=== PATIENT | female | born 1960 | race Caucasian/White ===

== ENCOUNTER 2020-11-10 16:58 | Emergency (ER) | payer BC, OTHER ==
[2020-11-10 18:05] LABS: HEMOGLOBIN 14.3 gm/dl (12.3-15.3); RED BLOOD COUNT 4.58 M/UL (4.00-5.10); WHITE BLOOD COUNT 12.1 K/UL (4.5-11.0)
[2020-11-10 18:42] LABS: BUN/CREATININE RATIO 21 (0-10)
[2020-11-10] MEDS ORDERED: ASPIRIN CHEWABL81 MG PO (21:26)
[2020-11-10] MEDS ORDERED: NITROSTAT0.4 MG SL (21:26)
[2020-11-11 06:40] LABS: HEMOGLOBIN 15.6 gm/dl (12.3-15.3); RED BLOOD COUNT 4.99 M/UL (4.00-5.10)
[2020-11-11 06:41] LABS: WHITE BLOOD COUNT 8.5 K/UL (4.5-11.0)
[2020-11-11 08:14] LABS: BUN/CREATININE RATIO 21 (0-10)
== END 2020-11-11 15:10 | disposition home or self-care (01) ==
LOC: ER1 16:58 → CDU 21:40 → ER1 21:40 → CDU 21:40
PROVIDERS: Internal Medicine
DX: R07.89 Other chest pain (principal); E87.6 Hypokalemia; I10 Essential (primary) hypertension; Z20.822 Contact with and (suspected) exposure to COVID-19; F17.210 Nicotine dependence, cigarettes, uncomplicated; J45.909 Unspecified asthma, uncomplicated; Z82.49 Family history of ischemic heart disease and other diseases of the circulatory system
CPT/HCPCS: 71045; 80053; 80061; 82550; 82553; 83036; 83735; 83874; 84443; 84484; 85025; 85379; 93005; 99285; G0378; U0002

== ENCOUNTER → 2020-12-24 | Outpatient (CLI) | payer BC, OTHER ==
[~2020-12-24] MED LIST: ASPIRIN CHEWABL81 MG PO; NITROSTAT0.4 MG SL
== END ==
LOC: US 09:11
DX: R10.13 Epigastric pain (principal)
CPT/HCPCS: 76700

== ENCOUNTER → 2020-12-27 | Outpatient (CLI) | payer BC, OTHER ==
[~2020-12-27] MED LIST changes: +IBUPROFEN600 MG PO
== END ==
LOC: HEART 5 08:49
DX: R07.9 Chest pain, unspecified (principal); I08.1 Rheumatic disorders of both mitral and tricuspid valves
CPT/HCPCS: 93306

== ENCOUNTER → 2020-12-30 | Outpatient (CLI) | payer BC, OTHER | LOC: HEART 5 08:15 | DX: R07.9 Chest pain, unspecified (principal) | CPT/HCPCS: 78452; A9502; J2785 ==

== ENCOUNTER → 2021-02-01 | Outpatient (CLI) | payer BC, OTHER | LOC: KOH-I 16:30 | DX: F17.210 Nicotine dependence, cigarettes, uncomplicated (principal); R91.8 Other nonspecific abnormal finding of lung field | CPT/HCPCS: 71271 ==

== ENCOUNTER 2021-03-05 16:04 | Emergency (ER) | payer BC, OTHER ==
[~2021-03-05 16:04] MED LIST changes: -IBUPROFEN600 MG PO
[2021-03-05] MEDS ORDERED: IBUPROFEN600 MG PO (18:21)
== END 2021-03-05 18:30 | disposition home or self-care (01) ==
LOC: ER1 16:04
DX: S93.601A Unspecified sprain of right foot, initial encounter (principal); E11.9 Type 2 diabetes mellitus without complications; E78.5 Hyperlipidemia, unspecified; I10 Essential (primary) hypertension; J44.9 Chronic obstructive pulmonary disease, unspecified; F17.210 Nicotine dependence, cigarettes, uncomplicated; X58.XXXA Exposure to other specified factors, initial encounter
CPT/HCPCS: 73630; 99283

== ENCOUNTER → 2021-04-13 | Outpatient (CLI) | payer BC, OTHER ==
[~2021-04-13] MED LIST changes: +IBUPROFEN600 MG PO
== END ==
LOC: CT 10:48
DX: K65.1 Peritoneal abscess (principal)
CPT/HCPCS: 36415; 82565; Q9967

== ENCOUNTER → 2022-02-15 | Outpatient (CLI) | payer BC, OTHER | LOC: HEART 5 11:42 | DX: J44.9 Chronic obstructive pulmonary disease, unspecified (principal); J45.40 Moderate persistent asthma, uncomplicated | CPT/HCPCS: 94060; 94729 ==

== ENCOUNTER → 2022-02-16 | Outpatient (CLI) | payer BC | LOC: KOH-I 10:13 | DX: F17.210 Nicotine dependence, cigarettes, uncomplicated (principal); R91.1 Solitary pulmonary nodule | CPT/HCPCS: 71271 ==